=== PATIENT | female | born 1955 | race Two or more races ===

== ENCOUNTER 2024-09-27 00:24 | Emergency (ER) | payer OTHER, MEDICAID, SELFPAY ==
[2024-09-27] VITALS (7 sets, daily range): BP systolic 124–199; BP diastolic 72–96; PULSE 72–94; RESP 17–20; TEMP 36.8; O2SAT 95–98; BMI 46.0
--- NOTE | 2024-09-27 00:34 | EKG_ITS ---
[facility] Test Date: 2024-09-27 Pat Name: MJ MAHMOOD Department: Room: - Gender: Female Labor Relations Consultant: : 1955 Requested By: Dread Hutson Order Number: [id number] Reading MD: Dread Hutson Measurements Intervals [place] Rate: 86 P: 28 [place]: 186 QRS: 5 QRSD: 94 T: 59 QT: 333 QTc: 400 Interpretive Statements SINUS RHYTHM NONSPECIFIC T-WAVE ABNORMALITY Compared to ECG 12/15/2020 14:30:47 T-wave abnormality now present Myocardial infarct finding no longer present /store/S0/[id number]/[id number].pdf
--- NOTE | 2024-09-27 01:01 | XR_ITS ---
Examination: AP chest single view Technique one AP upright portable chest single view Exam date and time: September 27, 2024 0109 hrs. Comparison September 08, 2022 Indications: Chest pain shortness of breath today. Findings: No significant cardiac enlargement Ectatic thoracic aorta No pneumonia or pulmonary edema Moderate osteopenia Impression: No pneumonia or pulmonary edema
--- NOTE | 2024-09-27 01:01 | PD.EDRME ---
Rapid Medical Screening Exam E Arrival date/time: 09/27/24 00:24 69F with history of cirrhosis, DM, HTN and hypothyroidism presents to ED with several hours of CP and SOB. Patient denies URI symptoms. Chief Complaint: Chest Pain Vital signs: Vital Signs Temperature 98.3 F 09/27/24 00:50 Pulse Rate 87 09/27/24 00:50 Respiratory Rate 20 09/27/24 00:50 Blood Pressure 197/91 H 09/27/24 00:50 Pulse Oximetry (%) 97 09/27/24 00:50 Oxygen Delivery Method Room Air 09/27/24 00:50
[2024-09-27 01:38] LABS: Basophils % (Auto) 1 % (0-2.5); Eosinophils # (Auto) 0.8 Thou/mm3 (0.0-0.5); Eosinophils % (Auto) 10 % (0-10); Hematocrit 35.6 % (36.0-46.0); Immature Granulocytes % (Auto) 1 % (0-0); Immature Granulocytes Auto 0.04 Thou/mm3 (0.00-0.00); Lymphocytes # (Auto) 1.8 Thou/mm3 (1.0-4.8); Lymphocytes % (Auto) 23 % (10-50); Mean Corpuscular HGB Conc 33.7 g/dl (31.0-37.0); Mean Corpuscular Hemoglobin 27.8 pg (25.0-35.0); Mean Corpuscular Volume 83 fL (80-100); Monocytes # (Auto) 0.6 Thou/mm3 (0.0-0.8); Monocytes % (Auto) 8 % (0-12); Neutrophils # (Auto) 4.7 Thou/mm3 (1.8-7.7); Neutrophils % (Auto) 59 % (37-80); Nucleated Red Blood Cell % 0 /100 WBC (0); Platelet Count 186 Thou/mm3 (140-440); RDW Standard Deviation 42.6 fL (36.4-46.3); Red Blood Count 4.31 Miln/mm3 (4.00-5.20); White Blood Count 8.1 Thou/mm3 (3.6-11.0)
[2024-09-27 02:26] LABS: Alanine Aminotransferase 40 U/L (10-49); Albumin/Globulin Ratio 1.3 (1.2-2.2); Alkaline Phosphatase 151 U/L (46-116); Anion Gap 8 (7-16); Aspartate Amino Transferase 44 U/L (0-34); BUN/Creatinine Ratio 20 Ratio (12-20); Bilirubin,Total 0.3 mg/dL (0.3-1.2); Blood Urea Nitrogen 20 mg/dL (9-23); Calcium 9.2 mg/dL (8.3-10.6); Calcium (Corrected) 9.2 mg/dL (8.5-10.1); Carbon Dioxide 27.9 mMol/L (20.0-31.0); Chloride 100 mMol/L (98-107); Estimated Creatinine Clearance 65.9 mL/min (>60); Globulin 3.2 gm/dL (2.3-3.5); Glucose 367 mg/dL (74-106); Osmolality,Calculated 289 (275-295); Sodium 136 mMol/L (136-145); Total Protein 7.2 gm/dL (5.7-8.2); Troponin I < 0.002 ng/mL (0.0-0.045); eGFR > 60 See Note
[2024-09-27 02:27] LABS: B-Type Natriuretic Peptide < 20 pg/mL (0-100)
--- NOTE | 2024-09-27 02:52 | PD.EDCHEST ---
ED Chest Pain RME/HPI General Chief Complaint: Chest Pain Stated Complaint: CHEST PAIN, SOB, BP HIGH Time Seen by Provider: 09/27/24 01:22 Arrival date/time: 09/27/24 00:24 Limitations: no limitations RME / HPI RME / HPI narrative: 09/27/24 00:24 69F with history of cirrhosis, DM, HTN and hypothyroidism presents to ED with several hours of CP and SOB. Patient denies URI symptoms. ------- Dr. Fu's Main ED Evaluation: 69yo female with a history of DM, HTN, cirrhosis presents to the ED for a chief complaint of high blood pressure. Patient's daughter states she has missed her antihypertensives for the last few days, reporting she's been under a lot of stress. She reports associated chest pressure and shortness of breath. Blood pressure at home was noted to be 259/99. Daughter denies any fever, chills, cough or any other associated symptoms. Related Data Home Medications ?Medication ?Instructions ?Recorded ?Confirmed levothyroxine 300 mcg tablet 300 mcg PO QDAY #0 tabs 09/08/13 01/05/21 sertraline 100 mg tablet (Zoloft) 150 mg PO HS #0 tabs 09/08/13 01/05/21 insulin degludec 100 unit/mL (3 92 unit subcut BID ##0 02/02/17 01/05/21 mL) subcutaneous pen (Tresiba FlexTouch U-100 insulin) levothyroxine 50 mcg tablet 50 mcg PO QDAY #0 tabs 02/02/17 01/05/21 hydrocodone 10 mg-acetaminophen 1 tab PO BID PRN Pain 12/15/20 01/05/21 325 mg tablet lisinopril 10 mg tablet 10 mg PO QDAY 12/15/20 01/05/21 cimetidine 400 mg tablet 400 mg PO BID 12/16/20 01/05/21 doxepin 50 mg capsule 50 mg PO HS 12/16/20 01/05/21 insulin aspart U-100 100 unit/mL 10 unit subcut DAILY 12/16/20 01/05/21 (3 mL) subcutaneous pen (Novolog FlexPen U-100 Insulin aspart) omega-3 acid ethyl esters 1 gram 1 cap PO DAILY 12/16/20 01/05/21 capsule rifaximin 550 mg tablet (Xifaxan) 550 mg PO DAILY 12/16/20 01/05/21 Previous Rx's ?Medication ?Instructions ?Recorded albuterol sulfate 90 mcg/actuation 2 puff inhalation Q4H PRN 12/07/17 aerosol inhaler shortness of breath or wheezing #18 grams Allergies Allergy/AdvReac Type Severity Reaction Status Date / Time Penicillins Allergy Unknown Difficulty Verified 01/06/21 10:51 Breathing codeine Allergy SEVERE Verified 01/06/21 10:51 DIZZINES Contrast Media Allergy Unknown Hives Uncoded 01/06/21 10:51 Review of Systems Review of Systems Systems Reviewed: All systems reviewed, normal except as documented ED Exam General Limitations: Present no limitations General appearance: Present alert and in no apparent distress Head Head exam: Present atraumatic Eye Eye exam: Present normal appearance, PERRL and EOMI ENT ENT exam: Present normal exam, normal oropharynx and mucous membranes moist Neck Neck exam: Present normal inspection, full ROM and trachea midline Chest Chest inspection: Present normal inspection and symmetric chest wall rise Respiratory Respiratory exam: Present normal lung sounds bilaterally Cardiovascular Cardiovascular exam: Present regular rate, normal rhythm and normal heart sounds Abdominal Exam Abdominal exam: Present soft and normal bowel sounds Extremities Exam Extremities exam: Present normal inspection and full ROM Back Exam Back exam: Present normal inspection and full ROM Neurological Exam Neurological exam: Present alert, oriented X3 and CN II-XII intact Psychiatric Psychiatric exam: Present normal affect and anxious Skin Skin exam: Present warm, dry, intact and normal color Course Course Course Narrative: CXR is ordered for determining the etiology of chest pain. Quality Measures none Orders Category Date Time Status EKG (ED ONLY) *Do not use* NOW Care 09/27/24 00:34 Completed EKG (ED Only) Stat Exams 09/27/24 00:34 Draft XR chest 1V portable Stat Exams 09/27/24 01:01 Completed B-Type Natriuretic Peptide Stat Lab 09/27/24 01:21 Completed CBC Stat Lab 09/27/24 01:21 Completed Comprehensive Metabolic Panel Stat Lab 09/27/24 01:21 Completed Troponin I Stat Lab 09/27/24 01:21 Completed Troponin I Stat Lab 09/27/24 05:35 Completed LORazepam [Ativan] Med 09/27/24 02:57 Discontinued 1 mg PO X1 ONE hydrALAZINE INJ [Apresoline Inj] Med 09/27/24 03:07 Discontinued 20 mg IV X1 ONE Vital Signs Vital signs: Vital Signs Temperature 98.3 F 09/27/24 00:50 Pulse Rate 87 09/27/24 00:50 Respiratory Rate 20 09/27/24 00:50 Blood Pressure 197/91 H 09/27/24 00:50 Pulse Oximetry (%) 97 09/27/24 00:50 Oxygen Delivery Method Room Air 09/27/24 00:50 Pulse ox is 97% on room air, which is normal according to my interpretation. Chest Pain Patient data External records reviewed:: [facility] previous records (Per chart review, patient has no relevant previous ED visits.) Clinical information provided by:: patient Social determinants that could affect healthcare access:: none Patient has the following chronic illnesses:: HTN, DM, cirrhosis How is presenting disease/condition affected by chronic disease/condition?: caused by Evaluation data The following diagnostics were reviewed and interpreted by me:: lab results, radiology exam(s) and EKG tracing(s) Lab and/or radiology exams considered but not ordered:: none Interpretation Summary: CBC is normal, CMP is normal, Troponin is normal, BNP is normal, according to my interpretation. CXR is rotated, but is negative for cardiomegaly, infiltrates, or CHF, according to my interpretation. EKG done at 0047, NSR, rate of 86, flattening T-waves in V3, QTc: 400, no STEMI, similar to previous EKG done in 2020, according to my interpretation. Medications / Prescriptions Medications or Prescriptions considered but not ordered:: none Medication administrations:: Medication Administration History Discontinued Medications Hydralazine HCl (Hydralazine Inj 20 Mg/Ml Vial) 20 mg IV X1 ONE Stop: 09/27/24 03:08 Last Admin: 09/27/24 03:29 Dose: 20 mg Documented By: KD Lorazepam (Lorazepam 0.5 Mg Tablet) 1 mg PO X1 ONE Stop: 09/27/24 02:58 Last Admin: 09/27/24 03:18 Dose: 1 mg Documented By: KD see above Consultations Consultation(s) initiated? (list below): No Diagnosis Chest Pain Differential Diagnosis: other (hypertensive urgency, hypertensive emergency, anxiety) Most likely diagnosis given after review of the tests above:: see below Admission Indicated Admission indicated?: not indicated Admission Request Was there a request for admission?: No Disposition Plan Disposition Plan: Discharge Discharge Attestation Discharge Attestation: The patient and all family members were given an opportunity to ask questions and understood the discharge instructions. Discharge instructions specifically effects, indications for sooner follow up or return to the emergency department, and the expected course of current diagnosis. Patient condition: Stable Discharge Plan Plan Patient Disposition: HOME (Self Care) Patient condition on transfer: Stable Prescriptions/Referrals Prescriptions/Med Rec: No Action levothyroxine 300 mcg Tablet 300 mcg PO QDAY Qty: 0 sertraline [Zoloft] 100 MG tablet 150 mg PO HS Qty: 0 levothyroxine 50 mcg Tablet 50 mcg PO QDAY Qty: 0 Tresiba FlexTouch U-100 100 UNIT/1 ML insulin pen 92 unit Sub-Q BID Qty: 0 albuterol sulfate 90 mcg/actuation HFA aerosol inhaler 2 puff INH Q4H PRN (Reason: shortness of breath or wheezing) Qty: 18 0RF Rx Instructions: administer with spacer hydrocodone-acetaminophen 10-325 mg Tablet 1 tab PO BID PRN (Reason: Pain) lisinopril 10 mg Tablet 10 mg PO QDAY Xifaxan 550 mg Tablet 550 mg PO DAILY doxepin 50 mg Capsule 50 mg PO HS cimetidine 400 mg Tablet 400 mg PO BID insulin aspart U-100 [Novolog FlexPen U-100 Insulin] 100 unit/mL (3 mL) Insulin Pen 10 unit SUBCUT DAILY Rx Instructions: SLIDING SCALE omega-3 acid ethyl esters 1 gram Capsule 1 cap PO DAILY Referrals: Chepe Harkins([facility]MD [Primary Care Provider] - In 1 week Problem List Clinical Impression: Hypertension, Atypical chest pain Patient/Caregiver Discharge Instructions Education Materials: ED Chest Pain, Uncertain Cause, ED Hypertension, Established Additional Instructions: Please take your blood pressure medications as prescribed. You can take your blood pressure daily for the next 7 days and then call your doctor for an appointment. I am sorry that you are having some anxiety dealing with your mother's dementia. It is important for you to take care of yourself as well. Return to the emergency department if you are having worsening symptoms, dizzy and cannot ambulate, or any other concerns. Print Language: [place] Stand Alone Forms: Crystal Award Info., Patient Portal Info Letter
[2024-09-27] MEDS: LORazepam 0.5 MG TABLET 1 MG PO (03:18)
[2024-09-27] MEDS: hydrALAZINE INJ 20 MG/ML VIAL IV (03:29)
[2024-09-27 06:29] LABS: Troponin I < 0.020 ng/mL (0.0-0.045)
== END 2024-09-27 06:54 | disposition home or self-care (01) ==
PROVIDERS: Physician Assistant; Emergency Provider Emergency Medicine; PCP Family Medicine
DX: I10 Essential (primary) hypertension (principal); R06.02 Shortness of breath; R07.89 Other chest pain; R94.31 Abnormal electrocardiogram [ECG] [EKG]
CPT/HCPCS: 36415; 71045; 80053; 83880; 84484; 85025; 93005; 99284; J0360; A9270

== ENCOUNTER → 2024-12-17 | Outpatient (CLI) | payer OTHER, SELFPAY ==
--- NOTE | 2024-12-17 12:49 | XR_ITS ---
Examination: CT abdomen and pelvis without contrast. Coronal 3-D reconstructions. Sagittal 2-D reconstructions. Date and time of exam:December 17, 2024 1313 hours Comparison October 16, 2023 INDICATIONS: Diagnosis cirrhosis, distal esophageal mass diagnosed 5 years ago CTDI: vol (mGy): 16.5 DLP: (mGycm): 942 Technique: Axial images of the abdomen have been obtained, 3 mm slice thickness Intravenous contrast material has not been administered. Low dose protocols were performed. One or more of the following dose reduction techniques were used; automated exposure control, adjustment of the mA and/or KV according to patient size, use of iterative reconstruction technique. Findings: Liver irregular in contour Suspicious for 8 mm right lobe liver lesion Splenomegaly Contracted gallbladder No pancreatic or adrenal mass No renal or ureteral calculi, no hydronephrosis No ascites Aorta normal size Normal appendix No bowel obstruction Colonic diverticulosis, no diverticulitis Absent uterus No bladder mass Severe osteopenia with kyphoplasty L5 IMPRESSION: Cirrhosis Suspicious for 8mm right lobe liver lesion, recommend elective MRI abdomen liver follow-up to assess this liver lesion No renal or ureteral calculi, no hydronephrosis Normal appendix No ascites
--- NOTE | 2024-12-17 12:57 | XR_ITS ---
Examination: PA lateral chest 2 views TECHNIQUE: Upright PA lateral chest 2 views Date and time: December 17, 2024 1307 hours Comparison September 27, 2024 INDICATIONS: Coughing shortness of breath beginning one month ago. FINDINGS: Mild accentuation basilar bronchovascular markings Normal heart size No lobar pneumonia IMPRESSION: Basilar bronchitis pattern
== END | disposition home or self-care (01) ==
PROVIDERS: PCP Nurse Practitioner; Referring Provider Family Medicine; Visit Provider Nurse Practitioner
DX: R05.9 Cough, unspecified (principal); R06.02 Shortness of breath; K74.60 Unspecified cirrhosis of liver
CPT/HCPCS: 71046; 74176

== ENCOUNTER → 2025-02-23 | Outpatient (CLI) | payer OTHER, SELFPAY ==
--- NOTE | 2025-02-23 14:30 | XR_ITS ---
Examination: Ultrasound soft tissue neck TECHNIQUE: Grayscale sonographic images soft tissue neck Date and time: February 23, 2025, 1446 hours INDICATIONS: Posterior neck pain beginning one month ago. FINDINGS: Multiple lymph nodes at the area concern in the posterior right neck, the largest 12 x 11 mm IMPRESSION: Multiple posterior right neck cervical lymph nodes, consider correlation with CT soft tissue neck post intravenous contrast follow-up
== END | disposition home or self-care (01) ==
PROVIDERS: PCP Nurse Practitioner; Referring Provider Nurse Practitioner; Visit Provider Nurse Practitioner
DX: R59.0 Localized enlarged lymph nodes (principal)
CPT/HCPCS: 76536